=== PATIENT | female | born 1960 | race Two or more races ===

== ENCOUNTER 2018-11-09 08:56 | Day surgery (SDC) | payer MEDICAID ==
[~2018-11-09] VITALS: Ht 162.6 cm; Wt 94.8 kg
[~2018-11-09 08:56] MED LIST: BALANCED SALT IRRIG SOLN COMB1 500ML OP ONE; CYCLOPENTOLATE HCL 1% OPHTH DROPS 2ML LEFTEYE ONE; IBUP-2029 PO; PHENYLEPHRINE HCL 10% OPHTH DROPS 5ML LEFTEYE ONE; TROPICAMIDE 1% OPHTH DROPS 15ML LEFTEYE ONE
[2018-11-09] MEDS ORDERED: LACTATED RINGERS 1,000 ML IV SCH (09:15)
[2018-11-09] MEDS ORDERED: FENTANYL CITRATE/PF 50MCG/ML 2ML VIAL ONE (11:44)
[2018-11-09] MEDS ORDERED: PROPOFOL 200MG/20ML VIAL IV ONE (11:44)
[2018-11-09] MEDS ORDERED: MIDAZOLAM HCL 2 MG/2 ML VIAL ONE (11:45)
[2018-11-09] MEDS ORDERED: HYALURONATE SODIUM 14 MG/ML 0.85ML SYRINGE IO ONE (12:20)
[2018-11-09] MEDS ORDERED: KETOROLAC 30MG/ML VIAL ONE (12:35)
[2018-11-09] MEDS ORDERED: TETRACAINE 0.5% OPHTH DROPS 4ML ONE (14:50)
[2018-11-09] MEDS ORDERED: PHENYLEPHRINE HCL 10% OPHTH DROPS 5ML ONE (14:50)
[2018-11-09] MEDS ORDERED: NEO/POLYMYX B SULF/DEXAMETH OPHTH OINT 3.5GM ONE (14:50)
[2018-11-09] MEDS ORDERED: CYCLOPENTOLATE HCL 1% OPHTH DROPS 2ML ONE (14:50)
[2018-11-09] MEDS ORDERED: TROPICAMIDE 1% OPHTH DROPS 15ML ONE (14:50)
[2018-11-09] MEDS ORDERED: PREDNISOLONE ACETATE 1% OPHTH DROPS 1ML ONE (14:50)
[2018-11-09] MEDS ORDERED: LIDOCAINE HCL/PF 2% 20 MG/ML 10ML VIAL ONE (14:50)
[2018-11-09] MEDS ORDERED: BALANCED SALT IRRIG SOLN 15ML ONE (14:50)
[2018-11-09] MEDS ORDERED: CIPROFLOXACIN 0.3% OPHTH SOLN 2.5ML ONE (14:50)
== END 2018-11-09 15:40 | disposition home or self-care (01) ==
LOC: OR 08:56
PROVIDERS: ATTEND Ophthalmology
DX: H25.89 Other age-related cataract (principal); M19.90 Unspecified osteoarthritis, unspecified site; E66.9 Obesity, unspecified; Z68.35 Body mass index [BMI] 35.0-35.9, adult; Z79.899 Other long term (current) drug therapy; Z98.890 Other specified postprocedural states
CPT/HCPCS: 66984; J1885; J2250; J3010; J3490; V2632; J2704